=== PATIENT | male | born 1945 | race Caucasian/White ===

== ENCOUNTER 2017-03-21 19:29 | Observation (INO) | payer OTHER, MEDICARE ==
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
[2017-03-22] MEDS ORDERED: Ondansetron 4 MG Tab.DIS PO PRN (12:16)
[2017-03-22] MEDS ORDERED: Acetaminophen 325 MG Tab PO PRN (12:16)
[2017-03-22] MEDS ORDERED: Sodium Chloride 0.9% 10 ML Syringe FLUSH PRN (12:16)
[2017-03-22] MEDS ORDERED: Potassium Chloride 20 MEQ Tab.ER PO ONE (12:20)
[2017-03-22] MEDS ORDERED: 50% Dextrose in Water 50 ML Syringe IVPUSH PRN (12:21)
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
[2017-03-22 16:30] VITALS: BP 145/74
[2017-03-22] MEDS ORDERED: Insulin Aspart 100 Units/ML 3 ML Pen SUBCUT SCH (17:00)
--- NOTE | 2017-03-22 18:39 | PCM.SN ---
- Free Text/Narrative Note: Meet with family today who will drive him back to [place]. Patient is asking for pain pill for his knees. Will give him rx for Tramadol 100 mg po Q8 PRN for pain #12. Advised to get OTC arthritic pain meds and or biofeedback for pain as well. Follow up with his PCP as soon as he gets back home. Family was advised patient will need 24 hrs supervision and outpatient PT when he gets back Home.
--- NOTE | 2017-03-22 18:47 | PCM.DCSUM1 ---
Discharge Summary - Hospital Course Brief History: Darvin is a 71yo man from [place] with history of dementia who was found by [employer] last evening on the side of the road just outside of [place] with a flat tire and confused. He was brought to ED for further evaluation. - Discharge Data Discharge Date: 03/22/17 Discharge Disposition: Home, Self-Care 01 Condition: Good - Discharge Diagnosis/Problem(s) (1) Dementia SNOMED Code(s): 54217527 ICD Code: F03.90 - UNSPECIFIED DEMENTIA WITHOUT BEHAVIORAL DISTURBANCE Status: Chronic Priority: High Qualifiers: Dementia type: unspecified type Dementia behavioral disturbance: without behavioral disturbance Qualified Code(s): F03.90 - Unspecified dementia without behavioral disturbance (2) Knee pain, left SNOMED Code(s): 50516279 ICD Code: M25.562 - PAIN IN LEFT KNEE Status: Chronic Problem Details: / Arthritis Qualifiers: Chronicity: chronic Qualified Code(s): M25.562 - Pain in left knee; G89.29 - Other chronic pain - Patient Summary/Data Operative Procedure(s) Performed: None Complications: None Consults: Consultations 03/22/17 12:16 Consult to Case Management [CONS] Routine Consult to Covering Machine Operator Helper [CONS] Routine OT Evaluation and Treatment [CONS] Routine PT Evaluation and Treatment [CONS] Routine 03/22/17 12:27 CAUSTIC PREPARER Eval and Treat [CAUSTIC PREPARER Evaluation and Treatment] [CONS] Routine Hospital Course: Patient was a social admit due to his underlying Dementia. He is not from around here locally but at the same time he had no medical reasons to be admitted. He was kept in ED for over 11 hrs before he was sent to the floor for further observation. He had no acute issues except of his knee pain which is not new to him. His hospital course was uncomplicated. Patient remained stable and no worsening of his dementia noted. His knee pain improved with pain medication. Once his family arrived, he was then released to them. On the day of his discharge, his family was advised that he be supervised 24hrs and that he would need outpatient PT. He was also given prescription Tramadol 100 mg po Q8 PRN for short term control of his he pain until he gets back home to see his PCP. Family was advised to reconsider taking away his loomis if his dementia continues to progress. - Patient Instructions Diet: Usual Diet as Tolerated, Diabetic Diet Activity: As Tolerated Driving: Do Not Drive Showering/Bathing: May Shower Notify Provider of: Fever, Nausea and/or Vomiting Other/Special Instructions: - Please take all your meds as directed. - You will need outpatietn PT when you get back home. - See you local doctor for you arthritis. - Call your doctor immediately for any questions or concerns - Discharge Plan Prescriptions/Med Rec: traMADol HCl [Conzip] 100 mg PO Q8HR PRN #12 [id number].25.75 PRN Reason: Pain Home Medications: Home Meds Aspirin [Halfprin] 81 mg PO DAILY 03/22/17 [History] Doxycycline [Vibramycin] 50 mg PO BID 03/22/17 [History] Gabapentin [Neurontin] 100 mg PO TID 03/22/17 [History] Lisinopril [Prinivil] 5 mg PO DAILY 03/22/17 [History] Neopolydex 1 drop EYEBOTH TID 03/22/17 [History] Rosuvastatin Calcium 10 mg PO DAILY 03/22/17 [History] Sertraline [Zoloft] 150 mg PO DAILY 03/22/17 [History] Ursodiol 300 mg PO TID 03/22/17 [History] amLODIPine [Norvasc] 5 mg PO DAILY 03/22/17 [History] traMADol HCl [Conzip] 100 mg PO Q8HR PRN #12 [id number].25.75 03/22/17 [Rx] Referrals: PCP,Not In Area [Primary Care Provider] - - Discharge Summary/Plan Comment DC Time >30 min.: No Discharge Summary/Plan Comment: Discharge to Home under the care of 2 family members. - General Info Date of Service: 03/22/17 Admission Dx/Problem (Free Text: Admission Diagnosis/Problem Admission Diagnosis/Problem Dementia Subjective Update: Follow Up Functional Status: Reports: pain controlled, tolerating diet, ambulating, urinating. Denies: new symptoms - Review of Systems General: Denies: Fever, Weakness, Fatigue, Malaise HEENT: Reports: no symptoms Pulmonary: Denies: shortness of breath Cardiovascular: Denies: Chest Pain Gastrointestinal: Denies: Abdominal pain, Nausea, Vomiting Genitourinary: Reports: no symptoms Musculoskeletal: Reports: no symptoms Skin: Reports: no symptoms Neurological: Reports: Difficulty Walking, Gait Disturbance. Denies: Confusion , Weakness Psychiatric: Denies: depression, anxiety, cravings, hallucinations Systems Review Comment: No acute issues. He complaints of arthritic knee pain with is chronic to him. He has no new complaints. - Patient Data Vitals - Most Recent: Last Vital Signs Temp 37.0 C 03/22/17 16:27 Pulse 86 03/22/17 16:27 Resp 18 03/22/17 16:27 BP 145/74 H 03/22/17 16:27 Pulse Ox 94 L 03/22/17 16:27 Weight - Most Recent: 90.401 kg I&O - Last 24 hours: Intake & Output 03/22/17 03/22/17 03/22/17 06:59 14:59 22:59 Intake Total 1420 Balance 1420 Lab Results - Last 24 hrs: Laboratory Results - last 24 hr 03/22/17 03/22/17 Range/Units 13:29 16:53 POC Glucose 184 H (83-110) mg/dL Hemoglobin A1c 7.30 H (4.50-6.20) % Med Orders - Current: Current Medications Acetaminophen (Tylenol) 650 mg PO Q4H PRN PRN Reason: Pain (Mild 1-3)/fever Last Admin: 03/22/17 15:13 Dose: 650 mg Dextrose/Water (Dextrose 50% In Water) 50 ml IVPUSH ASDIRECTED PRN PRN Reason: Hypoglycemia Famotidine (Pepcid) 20 mg PO BID [facility]1983 Insulin Aspart (Novolog) 0 unit SUBCUT QIDACANDBED [facility], 1928–1983 PRN Reason: Protocol Last Admin: 03/22/17 17:36 Dose: 1 units Ondansetron HCl (Zofran Odt) 4 mg PO Q4H PRN PRN Reason: nausea, able to take PO Sodium Chloride (Saline Flush) 10 ml FLUSH ASDIRECTED PRN PRN Reason: Keep Vein Open Discontinued Medications Potassium Chloride (Klor-Con M20) 20 meq PO ONETIME ONE Stop: 03/22/17 12:21 Last Admin: 03/22/17 13:35 Dose: 20 meq - Exam General: Reports: alert, oriented, cooperative HEENT: Reports: Pupils equal, Pupils reactive, EOMI, Mucous membr. moist/pink Neck: Reports: supple, trachea midline, no JVD Lungs: Reports: Clear to auscultation, Normal respiratory effort Cardiovascular: Reports: Regular Rate, Regular Rhythm Abdomen: Reports: bowel sounds present, soft, no tenderness, no distension (Male) Exam: Deferred Rectal (Males) Exam: Deferred Back Exam: Reports: normal inspection, decreased range of motion Extremities: Reports: no edema, normal pulses, no tenderness/swelling, no clubbing, no cyanosis, no calf tenderness, calf tenderness Skin: Reports: warm, dry, intact Neurological: Reports: no new focal deficit Psy/Mental Status: Reports: alert, normal affect, normal mood *Q Meaningful Use (DIS) - VTE *Q VTE Criteria *Q: - Stroke *Q Stroke Criteria *Q: - AMI *Q AMI Criteria *Q:
[2017-03-22] MEDS ORDERED: Famotidine 20 MG Tab PO SCH (21:00)
== END 2017-03-22 18:57 | disposition home or self-care (01) ==
LOC: JD.ED 19:29 → JD.MS 03-22 08:00
PROVIDERS: ADMIT Internal Medicine; ATTEND Internal Medicine
DX: F03.90 Unspecified dementia, unspecified severity, without behavioral disturbance, psychotic disturbance, mood disturbance, and anxiety (principal); M25.562 Pain in left knee; G89.29 Other chronic pain; R73.9 Hyperglycemia, unspecified; R74.8 Abnormal levels of other serum enzymes; D64.9 Anemia, unspecified; I25.10 Atherosclerotic heart disease of native coronary artery without angina pectoris; M19.90 Unspecified osteoarthritis, unspecified site; Z79.82 Long term (current) use of aspirin; Z79.899 Other long term (current) drug therapy; Z98.890 Other specified postprocedural states
CPT/HCPCS: 36415; 80053; 81001; 82962; 83036; 85025; 96125; 97161; 97166; 97530; 99285; A9270; J1815; G0378